=== PATIENT | male | born 1995 | race African-American/Black ===

== ENCOUNTER 2020-04-24 18:50 | Emergency (ER) | payer SELFPAY ==
[~2020-04-24] VITALS: Ht 189.2 cm; Wt 86.4 kg
[2020-04-24 19:05] VITALS: BP 147/98; Ht 189.2 cm; Wt 86.4 kg
[2020-04-24] MEDS ORDERED: ATARAX 25 MG TA25 MG PO (19:05)
[2020-04-24] MEDS ORDERED: STERAPRED DS 1010 MG PO (19:05)
[2020-04-24] MEDS ORDERED: PEPCID40 MG PO (19:05)
== END 2020-04-24 19:14 | disposition home or self-care (01) ==
LOC: D.ER 18:50
DX: L50.9 Urticaria, unspecified (principal)